=== PATIENT | male | born 1965 | race African-American/Black ===

== ENCOUNTER 2020-02-07 19:26 | Emergency (ER) | payer MEDICAID ==
[~2020-02-07] VITALS: Ht 165.1 cm; Wt 79.4 kg
[2020-02-07 19:26] VITALS: BP 115/75
--- NOTE | 2020-02-07 19:26 | NUR ---
ED Nurse Note: Patient MARCELLUS JEWELL from street c/o lower abdominal pain. Reports intermittent nausea. Denies vomiting and diarrhea. Per EMS, pt was seen to [facility] due to same symptoms and was given meds but no relief. Afebrile. Not in any distress. Will cont to monitor.
--- NOTE | 2020-02-07 19:55 | Emergency Room Report ---
History of Present Illness General Chief Complaint: Abdominal Pain Source: Patient Present Illness HPI Patient presents with abdominal pain. He called paramedics. He says he gets this pain when he is pancreatitis. He says he drinks to prevent himself from shaking and also to dull the pain in his abdomen. He denies vomiting blood or diarrhea. Denies melena. Patient states he has a prescription for Ativan that he has not filled to help him with the shakes. He denies suicidal or homicidal ideation. He rates the pain 6/10 and poorly describes it. It is constant. The patient has a history of seizures in the past. He is not taking any medication at this time. His last seizure was 6 months ago. He denies any head trauma. No fevers, chills, sore throat, chest pain, palpitations, dysuria, shortness of breath, joint pain, rashes, depression, anxiety, visual changes, dizziness, headache. COVID-19 risk:Travel to affect: No Has patient experienced cisneros: No Allergies: Coded Allergies: No Known Allergies (Unverified , 02/07/20) Patient History Past Medical History: see triage record Social History: Reports: alcohol use Reviewed Nursing Documentation: PMH: Agreed; PSxH: Agreed Nursing Documentation-PMH Hx Gastrointestinal Problems: Yes - PANCREATITIS, ETOH Review of Systems All Other Systems: negative except mentioned in HPI Physical Exam Vital Signs Date Time Temp Pulse Resp B/P (MAP) Pulse Ox O2 Delivery O2 Flow Rate FiO2 02/07/20 19:14 98.1 78 12 115/75 (88) 98 Room Air Sp02 EP Interpretation: reviewed, normal General Appearance: no apparent distress, GCS 15, non-toxic, other - Somewhat disheveled Head: normocephalic, atraumatic Eyes: bilateral eye PERRL, bilateral eye EOMI, bilateral eye Scleral Injection ENT: moist mucus membranes - No lingual trauma Neck: full range of motion, supple Respiratory: lungs clear - Anteriorly, normal breath sounds Cardiovascular #1: regular rate, rhythm Cardiovascular #2: 2+ radial (R) Gastrointestinal: normal inspection, soft, no mass, non-distended, no guarding , no rebound, tenderness - Reported, decreased bowel sounds, overweight Musculoskeletal: back normal, normal range of motion Neurologic: alert, motor strength/tone normal, DTRs symmetric, oriented x3, sensory intact, other - Slurred speech Psychiatric: mood/affect normal Skin: warm/dry Medical Decision Making Homeless Attestation I, The treating physician Dr. Maxwell, have assessed and agree that patient is medically stable for discharge to an outpatient disposition. Diagnostic Impression: Primary Impression: Alcohol intoxication Qualified Codes: F10.920 - Alcohol use, unspecified with intoxication, uncomplicated Additional Impression: Abdominal pain Qualified Codes: R10.84 - Generalized abdominal pain ER Course Patient presents with abdominal pain and alcohol ingestion. Differential includes gastritis, gastroenteritis, pancreatitis, alcohol ingestion amongst others. Evaluation with EKG, chest x-ray and labs. Patient treated with IV hydration and thiamine. Patient given a dose of Reglan and Benadryl. Based on exam and history imaging studies not indicated immediately. EKG sinus rhythm with first-degree block otherwise normal EKG. Labs with normal white count. Min elevated lipase. Sleeping in no distress or vomiting. Abdomen soft Patient signed out to Dr. Calzada. Laboratory Tests Test 02/07/20 19:50 02/07/20 20:08 Phosphorus Level 4.7 MG/DL (2.5-4.9) Magnesium Level 1.9 MG/DL (1.8-2.4) White Blood Count 7.5 K/UL (4.8-10.8) Red Blood Count 4.20 M/UL (4.70-6.10) L Hemoglobin 11.2 G/DL (14.2-18.0) L Hematocrit 35.3 % (42.0-52.0) L Mean Corpuscular Volume 84 FL (80-99) Mean Corpuscular Hemoglobin 26.7 PG (27.0-31.0) L Mean Corpuscular Hemoglobin Concent 31.8 G/DL (32.0-36.0) L Red Cell Distribution Width 16.1 % (11.6-14.8) H Platelet Count 71 K/UL (150-450) L Mean Platelet Volume 8.1 FL (6.5-10.1) Neutrophils (%) (Auto) 53.0 % (45.0-75.0) Lymphocytes (%) (Auto) 31.9 % (20.0-45.0) Monocytes (%) (Auto) 13.4 % (1.0-10.0) H Eosinophils (%) (Auto) 1.0 % (0.0-3.0) Basophils (%) (Auto) 0.1 % (0.0-2.0) Prothrombin Time 10.7 SEC (9.30-11.50) Prothrombin Time INR 1.0 (0.9-1.1) Activated Partial Thromboplast Time 27 SEC (23-33) Urine Color Pale yellow Urine Appearance Clear Urine pH 5 (4.5-8.0) Urine Specific [place] 1.005 (1.005-1.035) Urine Protein Negative (NEGATIVE) Urine Glucose (UA) Negative (NEGATIVE) Urine Ketones Negative (NEGATIVE) Urine Blood Negative (NEGATIVE) Urine Nitrite Negative (NEGATIVE) Urine Bilirubin Negative (NEGATIVE) Urine Urobilinogen Normal MG/DL (0.0-1.0) Urine Leukocyte Esterase Negative (NEGATIVE) Sodium Level 132 MMOL/L (136-145) L Potassium Level 3.4 MMOL/L (3.5-5.1) L Chloride Level 95 MMOL/L (98-107) L Carbon Dioxide Level 21 MMOL/L (21-32) Anion Gap 16 mmol/L (5-15) H Blood Urea Nitrogen 10 mg/dL (7-18) Creatinine 0.7 MG/DL (0.55-1.30) Estimate Glomerular Filtration Rate > 60 mL/min (>60) Glucose Level 101 MG/DL (74-106) Calcium Level 8.9 MG/DL (8.5-10.1) Total Bilirubin 0.3 MG/DL (0.2-1.0) Aspartate Amino Transferase (AST) 65 U/L (15-37) H Alanine Aminotransferase (ALT) 39 U/L (12-78) Alkaline Phosphatase 70 U/L (46-116) Total Creatine Kinase 547 U/L (26-308) H Troponin I 0.006 ng/mL (0.000-0.056) Total Protein 7.9 G/DL (6.4-8.2) Albumin 3.8 G/DL (3.4-5.0) Globulin 4.1 g/dL Albumin/Globulin Ratio 0.9 (1.0-2.7) L Lipase 479 U/L (73-393) H Salicylates Level 0.7 ug/mL (2.8-20) L Urine Opiates Screen Negative (NEGATIVE) Acetaminophen Level < 3 MCG/ML (10-30) L Urine Barbiturates Screen Negative (NEGATIVE) Phencyclidine (PCP) Screen Negative (NEGATIVE) Urine Amphetamines Screen Negative (NEGATIVE) Urine Benzodiazepines Screen Positive (NEGATIVE) H Urine Cocaine Screen Negative (NEGATIVE) Urine Marijuana (THC) Screen Negative (NEGATIVE) Serum Alcohol 345 mg/dL EKG Diagnostic Results Rate: normal Rhythm: NSR ST Segments: no acute changes Rhythm Strip Diag. Results EP Interpretation: yes Rhythm: NSR, no PVC's, no ectopy Last Vital Signs Date Time Temp Pulse Resp B/P (MAP) Pulse Ox O2 Delivery O2 Flow Rate FiO2 02/08/20 04:48 97.6 69 19 125/72 95 Room Air Status: improved Disposition: HOME, SELF-CARE Condition: Improved Scripts Mag Hydrox/Aluminum Hyd/Simeth (Mylanta Maximum Strength Liq) 355 Ml Oral.susp 30 ML PO Q6HR, #240 ML Prov: Catalino Maxwell MD 02/07/20 Acetaminophen (Tylenol) 325 Mg Tablet 650 MG ORAL Q6H PRN for Prn Pain/Headache/Temp > 101, #20 TAB 0 Refills Prov: Catalino Maxwell MD 02/07/20 Catalino Maxwell MD Feb 07, 2020 19:55
--- NOTE | 2020-02-07 19:55 | NUR ---
ED Nurse Note: IV line established. Blood and urine specimen collected and sent to lab.
[2020-02-07] MEDS ORDERED: DiphenhydrAMINE 50mg/ml Inj IVP ONE (20:00)
[2020-02-07] MEDS ORDERED: Thiamine HCl 100 MG in D5W 55 ML IV ONE (20:00)
[2020-02-07] MEDS ORDERED: Metoclopramide 10mg/2ml Inj IVP ONE (20:00)
[2020-02-07 20:45] LABS: APPEARANCE,URINE CLEAR; BILIRUBIN, URINE NEGATIVE (NEGATIVE); COLOR,URINE PALE YELLOW; GLUCOSE, URINE (UA) NEGATIVE (NEGATIVE); HEMATOCRIT 35.3 % (42.0-52.0); HEMOGLOBIN 11.2 G/DL (14.2-18.0); KETONES,URINE NEGATIVE (NEGATIVE); LEUKOCYTE ESTERASE ,URINE NEGATIVE (NEGATIVE); MEAN CORPUSCULAR VOLUME 84 FL (80-99); NITRITE,URINE NEGATIVE (NEGATIVE); PH,URINE 5 (4.5-8.0); PLATELET COUNT 71 K/UL (150-450); PROTEIN,URINE NEGATIVE (NEGATIVE); RED CELL DISTRIBUTION WIDTH 16.1 % (11.6-14.8); UROBILINOGEN,URINE NORMAL MG/DL (0.0-1.0); WHITE BLOOD COUNT 7.5 K/UL (4.8-10.8)
[2020-02-07 20:48] LABS: BASOPHILS % (AUTO) 0.1 % (0.0-2.0); LYMPHOCYTES % (AUTO) 31.9 % (20.0-45.0); MONOCYTES % (AUTO) 13.4 % (1.0-10.0)
[2020-02-07 20:52] LABS: ANION GAP 16 mmol/L (5-15); BLOOD UREA NITROGEN 10 mg/dL (7-18); CALCIUM 8.9 MG/DL (8.5-10.1); CARBON DIOXIDE 21 MMOL/L (21-32); CHLORIDE 95 MMOL/L (98-107); CREATININE 0.7 MG/DL (0.55-1.30); POTASSIUM 3.4 MMOL/L (3.5-5.1); SODIUM 132 MMOL/L (136-145)
[2020-02-07 20:57] LABS: PHOSPHORUS 4.7 MG/DL (2.5-4.9)
[2020-02-07 21:00] VITALS: BP 123/64
[2020-02-07 21:00] LABS: ALANINE AMINOTRANSFERASE 39 U/L (12-78); ALBUMIN 3.8 G/DL (3.4-5.0); ALBUMIN/GLOBULIN RATIO 0.9 (1.0-2.7); ALKALINE PHOSPHATASE 70 U/L (46-116); ASPARTATE AMINO TRANSFERASE 65 U/L (15-37); BILIRUBIN,TOTAL 0.3 MG/DL (0.2-1.0); CREATINE KINASE 547 U/L (26-308)
[2020-02-07] MEDS ORDERED: MYLANTA MAXIMU355 ML PO (21:45)
[2020-02-07] MEDS ORDERED: TYLENOL325 MG ORAL (21:45)
[2020-02-07 23:00] VITALS: BP 136/54
[2020-02-08 01:00] VITALS: BP 128/69
[2020-02-08 03:00] VITALS: BP 106/71
[2020-02-08 04:48] VITALS: BP 125/72
--- NOTE | 2020-02-08 04:48 | NUR ---
ED Nurse Note: Pt cleared by ERMD for discharge. DC instructions/prescription was given and explained to pt and verbalized understanding of teachings. All medical deviecs such as ID band and IV line removed. Pt is AAO x4, ambulatory and left with all personal belongings.
== END 2020-02-08 04:48 | disposition home or self-care (01) ==
LOC: EDBD 19:26 → EMR 19:50
DX: F10.920 Alcohol use, unspecified with intoxication, uncomplicated (principal); R10.84 Generalized abdominal pain; G40.909 Epilepsy, unspecified, not intractable, without status epilepticus; E66.3 Overweight; Z68.29 Body mass index [BMI] 29.0-29.9, adult; I44.0 Atrioventricular block, first degree
CPT/HCPCS: 36415; 80053; 80307; 81003; 82550; 83690; 83735; 84100; 84484; 85025; 85610; 85730; 93005; 96361; 96365; 96375; G0480; G0481; J1200; J2765; J7030; J7040; Z7502; 99284